=== PATIENT | male | born 1990 | race Two or more races ===

== ENCOUNTER 2018-05-09 12:58 | Emergency (ER) | payer MEDICAID, SELFPAY ==
[~2018-05-09] VITALS: Ht 172.7 cm; Wt 59.0 kg
--- NOTE | 2018-05-09 13:40 | NUR ---
ED Nurse Note: Patient brought in by [facility] for medical clearance. Patient received right hand surgery 2 days ago due to cellulitis. Multiple incisions (5) noted on the right hand. Removed contaminated dressing/splint. 2 open wounds with packed dressing on the back of the hand and 2 sutures on the palm noted. Swelling, redness noted. Cap refill < 3 sec, able to wiggle right fingers. Reports no fever or chills. Patient has handcuffed to left hand and officers at bedside.
[2018-05-09] MEDS ORDERED: Bactrim-DS 1 tab ORAL ONE (13:45)
[2018-05-09] MEDS ORDERED: Cephalexin 500mg cap ORAL ONE (13:45)
--- NOTE | 2018-05-09 14:00 | Emergency Room Report ---
History of Present Illness General Chief Complaint: Medical Clearance Source: Patient Present Illness HPI 27-year-old male presents to the emergency department for medical clearance for incarceration and is complaining of 7 out of 10 in severity pain, swelling and erythema localized to the right hand/wrist. Patient reports that 2 days ago he had surgical incision and drainage performed under anesthesia. Patient reports IV drug use he denies fevers or chills. Patient reports that the splint that he was placed in is falling off. He denies trauma or fall. He states he is up- to-date with his vaccinations. Patient reports that he was not given any prescriptions for antibiotics. No other complaints at this time no modifying factors. Allergies: Coded Allergies: No Known Allergies (Unverified , 05/09/18) Patient History Past Medical History: see triage record Past Surgical History: other - surgical I & D to the right hand Social History: Reports: drug use - IVDU Immunizations: UTD Reviewed Nursing Documentation: PMH: Agreed; PSxH: Agreed Review of Systems All Other Systems: negative except mentioned in HPI Physical Exam Vital Signs Date Time Temp Pulse Resp B/P (MAP) Pulse Ox O2 Delivery O2 Flow Rate FiO2 05/09/18 12:44 97.9 90 16 124/90 95 Room Air Sp02 EP Interpretation: reviewed, normal General Appearance: alert, GCS 15, non-toxic, mild distress Head: normocephalic, atraumatic Eyes: bilateral eye normal inspection, bilateral eye PERRL ENT: hearing grossly normal, normal voice Neck: full range of motion Respiratory: lungs clear, normal breath sounds, no wheezing, speaking full sentences Cardiovascular #1: regular rate, rhythm, no edema, other - no murmur Musculoskeletal: back normal, gait/station normal, normal range of motion, inflammation - right hand and wrist, swelling - right hand and wrist, other - very loose right wrist volar splint. Evidence of three surgical incisions which appear to most likely have been done by a surgeon due to location and depth. , tender - right hand and wrist. Neurologic: alert, oriented x3, responsive, motor strength/tone normal, sensory intact, speech normal, grossly normal Psychiatric: judgement/insight normal Skin: no rash, warm/dry, well hydrated, other - erythema, warmth, swelling, tenderness- very loose right wrist volar splint. Evidence of three surgical incisions which appear to most likely have been done by a surgeon due to location and depth. Medical Decision Making PA Attestation Dr. Bonilla is my supervising Physician whom patient management has been discussed with. Diagnostic Impression: Primary Impression: Cellulitis of right upper extremity Additional Impression: History of intravenous drug abuse ER Course 27-year-old male presents to the emergency department for medical clearance for incarceration and is complaining of 7 out of 10 in severity pain, swelling and erythema localized to the right hand/wrist. Patient reports that 2 days ago he had surgical incision and drainage performed under anesthesia. Patient reports IV drug use he denies fevers or chills. Patient reports that the splint that he was placed in is falling off. He denies trauma or fall. He states he is up- to-date with his vaccinations. Patient reports that he was not given any prescriptions for antibiotics. No other complaints at this time no modifying factors. Ddx considered but are not limited to cellulitis, Abscess, lymphangitis, sepsis , fracture, d/L, gout Vital signs: are WNL, pt. is afebrile H&PE are most consistent with moderate cellulitis of the Right hand and forearm ORDERS: none required at this time, the diagnosis is clinical ED INTERVENTIONS: -Wound care ---pt. declines wound packing change -- volar splint applied to the right hand and arm by professor of industrial technology Ra, pt. remains NVI both before and after application. Discussed with law enforcement that this patient will require continued antibiotic treatment and wound care. truant officer endorses that the patient will be taken to [facility] which has designated area and is contracted with for this type of continued management for persons under custody. At this time this patient is stable for outpatient treatment due to in in custody however he will be transported to appropriate facility in a stable condition. DISCHARGE: At this time pt. is stable for d/c to home. Will provide printed patient care instructions, and any necessary prescriptions. Care plan and follow up instructions have been discussed with the patient prior to discharge. Last Vital Signs Date Time Temp Pulse Resp B/P (MAP) Pulse Ox O2 Delivery O2 Flow Rate FiO2 05/09/18 13:36 88 16 Room Air 05/09/18 12:44 97.9 124/90 95 Disposition: D/C TO [employer] IN [facility] Condition: Stable Scripts Trimethoprim/Sulfamethoxazole 160/800* (BACTRIM DS TABLET*) 1 Each Tablet 1 TAB ORAL TWICE A DAY for 7 Days, #14 TAB Prov: Gisselle Lunsford 05/09/18 Cephalexin* (KEFLEX*) 500 Mg Capsule 500 MG ORAL EVERY 12 HOURS for 7 Days, #14 CAP 0 Refills Prov: Gisselle Lunsford 05/09/18 Departure Forms: Shelter Clearance Patient Instructions: Cellulitis, [id number] Additional Instructions: Take medications as directed. YOU HAVE BEEN EVALUATED AND DETERMINED STABLE FOR TRANSPORT FOLLOW UP IMMEDIATELY AT A MEDICAL FACILITY CONTRACTED WITH [employer] TO RECEIVE ONGOING MEDICAL CARE Return sooner to ED if new symptoms occur, or current symptoms become worse. - Please note that this Emergency Department Report was dictated using [employer] construction inspector technology software, occasionally this can lead to erroneous entry secondary to interpretation by the dictation equipment. Gisselle Lunsford May 09, 2018 14:00
[2018-05-09] MEDS ORDERED: BACTRIM DS TAB1 EAC1 ORAL (14:01)
[2018-05-09] MEDS ORDERED: CEPHALEXIN500 MG ORAL (14:01)
[2018-05-09 14:45] VITALS: BP 124/90
--- NOTE | 2018-05-09 14:45 | NUR ---
ER DISCHARGE NOTE: Patient is cleared to be discharged per ERMD, pt is aox4, on room air, with stable vital signs. pt was given dc and prescription instructions, pt was able to verbalize understanding, pt id band removed without complications. pt is able to ambulate with steady gait. pt took all belongings. All prescriptions were given to police officers
== END 2018-05-09 14:45 ==
LOC: EDBD 12:58 → EMR 13:50
DX: L03.113 Cellulitis of right upper limb (principal); F19.10 Other psychoactive substance abuse, uncomplicated
CPT/HCPCS: 99283